=== PATIENT | female | born 1945 | race Caucasian/White ===

== ENCOUNTER 2018-01-13 08:58 | Outpatient (CLI) | payer OTHER, MEDICARE, SELFPAY ==
[2018-01-13 09:39] LABS: Abs Immature Grans 0.01 k/cumm (0.0-0.09); Absolute Basophil Count 0.03 k/cumm (0.0-0.2); Absolute Lymphocyte Count 2.15 k/cumm (1.2-3.4); Absolute Monocyte Count 0.57 k/cumm (0.11-0.7); Absolute Neutrophil Count 3.22 k/cumm (1.2-6.7); Basophils % 0.5; Eosinophils % 3.2; HCT 38.2 % (36.0-46.0); HGB 12.4 g/dL (12.0-15.5); Immature Grans % 0.2; Lymphocytes % 34.8; Mean Corp. HGB Concentration 32.5 g/dL (32.0-36.0); Mean Corpuscular Hemoglobin 30.5 pg (27.0-33.0); Mean Corpuscular Volume 93.9 fL (80-95); Mean Platelet Volume 9.3 fL (8.0-11.0); Monocytes % 9.2; Neutrophils % 52.1; Platelet Count 215 x1000/uL (130-400); RBC 4.07 m/cumm (4.00-5.20); RBC Distribution Width 12.5 % (11.7-14.6); White Blood Cell Count 6.18 k/cumm (4.4-10.8)
[2018-01-13 09:54] LABS: ALT 31 U/L (12-78); AST 22 U/L (15-37); Albumin 3.5 g/dL (3.4-5.0); Alkaline Phosphatase 78 U/L (46-116); Anion Gap 7.2 mmol/L (3-11); BUN 23 mg/dL (7-18); Bilirubin, Total 0.4 mg/dL (0.2-1.0); CO2 28.8 mmol/L (21.0-32.0); CREATININE 1.34 mg/dL (0.55-1.02); Calcium 8.8 mg/dL (8.5-10.1); Chloride 102 mmol/L (98-107); Estimated GFR 38.99 (mL/min/1.73m2); Glucose 185 mg/dL (70-100); Potassium 4.5 mmol/L (3.5-5.1); Sodium 138 mmol/L (136-145); Total Protein 7.3 g/dL (6.4-8.2)
== END 2018-01-13 09:18 ==
PROVIDERS: PCP Family Medicine; Referring Provider Nurse Practitioner Adult Health; Visit Provider Internal Medicine
DX: E11.9 Type 2 diabetes mellitus without complications (principal); Z85.3 Personal history of malignant neoplasm of breast
CPT/HCPCS: 36415; 80053; 83036; 85025

== ENCOUNTER → 2018-02-24 10:49 | Outpatient (BNVA) | payer OTHER, MEDICARE, SELFPAY | PROVIDERS: PCP Family Medicine; Referring Provider Family Medicine; Visit Provider Student in an Organized Health Care Education/Training Program | DX: M65.4 Radial styloid tenosynovitis [de Quervain] (principal); E11.9 Type 2 diabetes mellitus without complications; I10 Essential (primary) hypertension | CPT/HCPCS: 99213 ==

== ENCOUNTER 2018-03-31 08:41 | Outpatient (CLI) | payer OTHER, MEDICARE, SELFPAY ==
[2018-03-31 09:40] LABS: Hemoglobin A1C 7.8 % (4.5-6.2)
[2018-03-31 11:36] LABS: Anion Gap 13.3 mmol/L (3-11); BUN 28 mg/dL (7-18); CO2 27.7 mmol/L (21.0-32.0); CREATININE 1.41 mg/dL (0.55-1.02); Calcium 10.2 mg/dL (8.5-10.1); Chloride 99 mmol/L (98-107); Cholesterol 138 mg/dL (50-200); Estimated GFR 36.77 (mL/min/1.73m2); Glucose 109 mg/dL (70-100); HDL Cholesterol 49 mg/dL (40-60); LDL CHOLESTEROL 70 mg/dL (<100); Potassium 4.2 mmol/L (3.5-5.1); Sodium 140 mmol/L (136-145); Triglyceride 122 mg/dL (30-150)
[2018-03-31 12:03] LABS: COMMENT (LAB VIEW ONLY) 167.99 mg/dL; Microalb ug/mg Crea 5.4 ug/mg Cr
== END 2018-03-31 09:01 ==
PROVIDERS: Physician Assistant; PCP Family Medicine; Visit Provider Student in an Organized Health Care Education/Training Program
DX: E11.65 Type 2 diabetes mellitus with hyperglycemia (principal); I10 Essential (primary) hypertension; E78.5 Hyperlipidemia, unspecified
CPT/HCPCS: 36415; 80048; 80061; 83721; 82043; 82570; 83036

== ENCOUNTER 2018-04-03 08:59 | Day surgery (SDC) | payer OTHER, MEDICARE, SELFPAY ==
[2018-04-03 09:35] VITALS: BP 148/62; PULSE 77; RESP 16; TEMP 36.6; O2SAT 97
[2018-04-03] MEDS: Lactated Ringers 1,000 ML 80 ML IV (10:10)
[2018-04-03] MEDS: Lidocaine 1% Pres-Free 5 ML VIAL (10:30)
--- NOTE | 2018-04-03 10:56 | W.PM.DSUDISC ---
Documented by User: FRIDA Sands 04/03/18 11:03 Discharge Plan Disposition Patient Disposition: HOME Condition: Good Discharge Details Reason For Visit: DEQUERVAIN'S TENDONITIS (L) WRIST Attending Provider: Paul Manzano Primary Care Provider: Geetha Lee Home Meds and New Rx's Prescriptions: New hydrocodone-acetaminophen 5-325 mg tablet 1 tab PO Q6H PRN (Reason: pain) Qty: 6 RF: 0 acetaminophen 500 mg tablet 500 mg PO Q6H PRN (Reason: pain) Qty: 60 RF: 0 ibuprofen 600 mg tablet 600 mg PO TID PRN (Reason: pain) Qty: 60 RF: 0 Continue aspirin [Jacek Chewable Aspirin] 81 mg tablet,chewable 81 mg PO DAILY Qty: 1 RF: 0 arcnbhbuus-myied-niw-boyd-115HC 375-150-125 mg tablet 1 tab PO HS RF: 0 losartan-hydrochlorothiazide 100-25 mg tablet 1 tab PO HS RF: 0 metformin [Glucophage XR] 750 mg tablet extended release 24 hr 1,500 mg PO HS RF: 0 multivitamin tablet 1 tab PO DAILY RF: 0 triamcinolone acetonide 0.1 % cream 1 applic TP BID PRNRF: 0 semaglutide [Ozempic] 0.25 mg or 0.5 mg(2 mg/1.5 mL) pen injector 0.5 mg SC QWEEK MDD 0.25-0.5 weekly Qty: 1.5 RF: 2 pen needle, diabetic [NovoFine Plus] 32 gauge x 1/6 needle .ROUTE .MEDSUPPLY Qty: 100 RF: 0 insulin glargine [Lantus Solostar U-100 Insulin] 100 unit/mL (3 mL) insulin pen 9 unit SC HS MDD 10-30 units per day RF: 0 atorvastatin 40 mg tablet 40 mg PO HS RF: 0 anastrozole 1 mg tablet 1 mg PO HS RF: 0 calcium carbonate-vitamin D3 200 (500)-400 mg-unit capsule 1 cap PO HS RF: 0 Discontinued ibuprofen [Advil Liqui-Gel] 200 mg capsule 400 mg PO PRN PRNRF: 0 acetaminophen 500 mg tablet 1,000 mg PO HS RF: 0 Discharge Orders Discharge Orders: Discharge Order (Routine); Ordered 04/03/18 Ordered By: Manav Duffy DS: Diagnosis Discharge Diagnosis (1) De Quervain's tenosynovitis, left: Status: Chronic
--- NOTE | 2018-04-03 17:44 | ROE_ITS ---
Date of service: 04/03/18 Time of Service: 12:42 Operative Note DATE OF PROCEDURE: 04/03/18 PRE-OP DIAGNOSIS: Left Dequervain's Tenosynovitis POST-OP DIAGNOSIS: same PROCEDURE: Left First Extensor Compartment Release SURGEON: Paul Manzano ANESTHESIA: MAC ESTIMATED BLOOD LOSS: 0 PATHOLOGY: none sent TOURNIQUET TIME: 12 COMPLICATIONS: None Patient was transported to: same day Patient's condition: stable Indications: Yaa is a 72-year-old female who has had symptoms of Dequervein's tenosynovitis. Nonoperative treatment options had been trialed. Given their failure, I offered operative intervention. I reviewed the technical details of a first extensor compartment release. I reviewed the risk of the procedure to include bleeding, infection, pain, stiffness, tendon instability, damage to the superficial radial nerve, and complete release. Despite these risks, the patient elected to proceed. Findings: There was a tightened first extensor compartment. Procedure Description: Yaa was greeted in the preoperative holding area. Name and surgical site were confirmed. The history and physical was completed. The consent was reviewed the patient and signed. Yaa was taken back to the operating room. The patient was placed and monitored anesthesia care. The left was then prepped with ChloraPrep and draped in a standard fashion after a nonsterile tourniquet was placed high up onto the arm. Prophylactic antibiotics in the form of cefazolin were administered. A timeout was performed for safe surgery. The surgical site was drawn on the skin. The planned surgical field was anesthetized with 0.25% bupivacaine with epinephrine. The limb was exsanguinated and the tourniquet was inflated where it stayed for 12 minutes. A 2 cm incision was made longitudinally over the radial styloid. The skin was incised only. The deep tissue and subcutaneous fat was dissected with a tenotomy scissors trying to protect branchhes of the superficial radial nerve. Any branches that were identified were retracted out of the way. The first compartment extensor tendons were then identified. The distal aspect of the first compartment was noted and were released. This release was performed more on the dorsal side to prevent tendon subluxation. The entirety of the first extensor compartment was then released. The slips of the abductor pollicis longus tendon were inspected. They removed to confirm the appropriate motion of the thumb. The extensor pollicis brevis tendon was then identified. No true sub-compartment was identified. Traction on the tendon was also used to confirm appropriate extension of the thumb confirming the release of the appropriate tendon. The dorsal radial surface of the radius was once again inspected to make sure there is no other sub-compartments or other restrictions to tendon motion. The wound was then thoroughly irrigated. The deep tissue was closed with a 3-0 Vicryl. The skin was closed with a running subjective 4- 0 Monocryl. Skin glue was applied. The tourniquet is released without significant bleeding. The hand was dressed with 4 x 4's, web roll, thumb spica splint. All counts were correct. Patient was transferred back to same day surgery area in stable condition.
== END 2018-04-03 11:55 | disposition home or self-care (01) ==
PROVIDERS: PCP Family Medicine; Visit Provider Student in an Organized Health Care Education/Training Program
PROC: (CPT 25000; principal; 2018-04-03 10:00)
DX: M65.4 Radial styloid tenosynovitis [de Quervain] (principal); E11.9 Type 2 diabetes mellitus without complications; Z79.4 Long term (current) use of insulin; I10 Essential (primary) hypertension; K21.9 Gastro-esophageal reflux disease without esophagitis
CPT/HCPCS: 25000; J0690; J1885; J2405

== ENCOUNTER 2018-08-15 08:56 | Outpatient (CLI) | payer OTHER, MEDICARE, SELFPAY ==
[2018-08-15 09:51] LABS: Hemoglobin A1C 6.7 % (4.5-6.2)
[2018-08-15 10:03] LABS: Anion Gap 7.8 mmol/L (3-11); BUN 19 mg/dL (7-18); CO2 31.2 mmol/L (21.0-32.0); CREATININE 1.33 mg/dL (0.55-1.02); Calcium 9.7 mg/dL (8.5-10.1); Chloride 101 mmol/L (98-107); Estimated GFR 39.33 (mL/min/1.73m2); Glucose 115 mg/dL (70-100); Potassium 4.2 mmol/L (3.5-5.1); Sodium 140 mmol/L (136-145)
== END 2018-08-15 09:16 ==
PROVIDERS: PCP Family Medicine; Visit Provider Family Medicine
DX: E11.9 Type 2 diabetes mellitus without complications (principal)
CPT/HCPCS: 36415; 80048; 83036

== ENCOUNTER 2018-12-22 01:48 | Outpatient (CLI) | payer MEDICARE, OTHER, SELFPAY ==
[2018-12-22 09:28] LABS: Abs Immature Grans 0.02 k/cumm (0.0-0.09); Absolute Basophil Count 0.03 k/cumm (0.0-0.2); Absolute Eosinophil Count 0.19 k/cumm (0.0-0.7); Absolute Lymphocyte Count 2.22 k/cumm (1.2-3.4); Absolute Monocyte Count 0.66 k/cumm (0.11-0.7); Absolute Neutrophil Count 4.47 k/cumm (1.2-6.7); Basophils % 0.4; Eosinophils % 2.5; HCT 41.4 % (36.0-46.0); HGB 13.6 g/dL (12.0-15.5); Immature Grans % 0.3; Lymphocytes % 29.2; Mean Corp. HGB Concentration 32.9 g/dL (32.0-36.0); Mean Corpuscular Hemoglobin 30.5 pg (27.0-33.0); Mean Corpuscular Volume 92.8 fL (80-95); Mean Platelet Volume 8.8 fL (8.0-11.0); Monocytes % 8.7; Neutrophils % 58.9; Platelet Count 214 x1000/uL (130-400); RBC 4.46 m/cumm (4.00-5.20); RBC Distribution Width 12.7 % (11.7-14.6); White Blood Cell Count 7.59 k/cumm (4.4-10.8)
[2018-12-22 09:46] LABS: ALT 29 U/L (12-78); AST 22 U/L (15-37); Albumin 3.7 g/dL (3.4-5.0); Alkaline Phosphatase 65 U/L (46-116); Anion Gap 9.3 mmol/L (3-11); BUN 22 mg/dL (7-18); Bilirubin, Total 0.4 mg/dL (0.2-1.0); CO2 27.7 mmol/L (21.0-32.0); Calcium 9.5 mg/dL (8.5-10.1); Chloride 103 mmol/L (98-107); Estimated GFR 40.26 (mL/min/1.73m2); Glucose 124 mg/dL (70-100); Sodium 140 mmol/L (136-145); Total Protein 7.8 g/dL (6.4-8.2)
[2018-12-23 10:40] LABS: Hemoglobin A1C 6.9 % (4.5-6.2)
== END 2018-12-22 02:08 ==
PROVIDERS: Nurse Practitioner Adult Health; PCP Family Medicine; Visit Provider Family Medicine
DX: E11.9 Type 2 diabetes mellitus without complications (principal); C50.911 Malignant neoplasm of unspecified site of right female breast; Z85.3 Personal history of malignant neoplasm of breast
CPT/HCPCS: 36415; 80053; 83036; 85025

== ENCOUNTER 2019-02-12 00:57 | Outpatient (CLI) | payer MEDICARE, OTHER, SELFPAY ==
--- NOTE | 2019-02-12 15:50 | DI.DEXA_ITS ---
EXAM: XR DEXA BONE DENSITY W/WO JEMIMA INDICATION: OSTEOPOROSIS WITHOUT FX,M81.8, BREAST CA, C50.911, PERSONAL H/O BREAST CA.z85.3,HIGH RIS K MEDICATION USE, Z79.899 TECHNIQUE: 2D digital imaging was performed. FINDINGS: DEXA scan was performed according to the usual protocol. Findings for left hip scanning are T-score 0.3 with left femoral neck T-score -0.1. Prior examination of 2016 showed left hip T-score 1 4. Lumbar spine scanning shows T-score 2.0, prior examination of 2016 showed lumbar T-score 2.2. Left forearm scanning shows T-score 0.9, prior examination of 2016 shows forearm T-score 0.5. IMPRESSION: Findings consistent with normal bone density according to the WHO criteria. Lateral vertebral scanogr am shows no evidence of a vertebral compression fracture.
== END 2019-02-12 01:17 ==
PROVIDERS: PCP Family Medicine; Visit Provider Nurse Practitioner Adult Health
DX: M81.8 Other osteoporosis without current pathological fracture (principal); Z85.3 Personal history of malignant neoplasm of breast; Z79.899 Other long term (current) drug therapy
CPT/HCPCS: 77080

== ENCOUNTER 2019-04-21 02:59 | Outpatient (CLI) | payer MEDICARE, OTHER, SELFPAY ==
[2019-04-21 08:00] LABS: COMMENT (LAB VIEW ONLY) 230.63 mg/dL
[2019-04-21 08:01] LABS: Calcium 9.6 mg/dL (8.5-10.1)
[2019-04-21 08:02] LABS: ALT 26 U/L (14-59); AST 22 U/L (15-37); Albumin 3.9 g/dL (3.4-5.0); Alkaline Phosphatase 53 U/L (46-116); Anion Gap 9.5 mmol/L (3-11); BUN 27 mg/dL (7-18); Bilirubin, Total 0.5 mg/dL (0.2-1.0); CO2 29.5 mmol/L (21.0-32.0); CREATININE 1.31 mg/dL (0.55-1.02); Chloride 103 mmol/L (98-107); Estimated GFR 39.91 (mL/min/1.73m2); Glucose 110 mg/dL (74-106); Potassium 3.9 mmol/L (3.5-5.1); Sodium 142 mmol/L (136-145)
[2019-04-21 08:18] LABS: Hemoglobin A1C 6.9 % (4.5-6.2)
== END 2019-04-21 03:19 ==
PROVIDERS: PCP Family Medicine; Visit Provider Family Medicine
DX: E11.9 Type 2 diabetes mellitus without complications (principal); I10 Essential (primary) hypertension
CPT/HCPCS: 36415; 80053; 82043; 82570; 83036

== ENCOUNTER 2019-12-16 03:16 | Outpatient (CLI) | payer MEDICARE, OTHER, SELFPAY ==
[2019-12-16 08:33] LABS: Hemoglobin A1C 7.4 % (3.8-5.6)
[2019-12-16 09:18] LABS: ALT 26 U/L (14-59); AST 21 U/L (15-37); Albumin 3.8 g/dL (3.4-5.0); Alkaline Phosphatase 49 U/L (46-116); Anion Gap 7.7 mmol/L (3-11); BUN 25 mg/dL (7-18); Bilirubin, Total 0.5 mg/dL (0.2-1.0); CO2 29.3 mmol/L (21.0-32.0); CREATININE 1.31 mg/dL (0.55-1.02); Calcium 9.6 mg/dL (8.5-10.1); Chloride 101 mmol/L (98-107); Glucose 134 mg/dL (74-106); Potassium 4.4 mmol/L (3.5-5.1); Sodium 138 mmol/L (136-145); Total Protein 6.9 g/dL (6.4-8.2)
== END 2019-12-16 03:36 ==
PROVIDERS: PCP Family Medicine; Visit Provider Family Medicine
DX: E11.9 Type 2 diabetes mellitus without complications (principal)
CPT/HCPCS: 36415; 80053; 83036

== ENCOUNTER 2020-02-18 02:42 | Outpatient (CLI) | payer MEDICARE, OTHER, SELFPAY ==
[2020-02-18 08:15] LABS: Abs Immature Grans 0.01 10^3/uL (0.0-0.06); Absolute Basophil Count 0.03 10^3/uL (0.0-0.2); Absolute Eosinophil Count 0.21 10^3/uL (0.0-0.7); Absolute Lymphocyte Count 2.39 10^3/uL (1.2-3.4); Absolute Monocyte Count 0.69 10^3/uL (0.1-0.8); Absolute Neutrophil Count 4.12 10^3/uL (1.2-6.7); Basophils % 0.4; Eosinophils % 2.8; HGB 12.9 g/dL (11.2-15.7); Immature Grans % 0.1; Lymphocytes % 32.1; MCH 30.4 pg (27.0-33.0); MCHC 32.3 % (32.0-36.0); MCV 94.1 fL (80-95); MPV 8.8 fL (8.0-11.0); Monocytes % 9.3; Neutrophils % 55.3; Nucleated RBC 0 %; Platelet Count 235 10^3/uL (130-400); RBC 4.25 10^6/uL (3.93-5.22); RDW 12.4 % (11.7-14.6); RDW-SD 42.6 fL; WBC 7.45 10^3/uL (4.4-10.8)
[2020-02-18 09:04] LABS: ALT 24 U/L (14-59); AST 17 U/L (15-37); Albumin 3.8 g/dL (3.4-5.0); Alkaline Phosphatase 57 U/L (46-116); Anion Gap 9.1 mmol/L (3-11); BUN 28 mg/dL (7-18); Bilirubin, Total 0.4 mg/dL (0.2-1.0); CO2 28.9 mmol/L (21.0-32.0); CREATININE 1.36 mg/dL (0.55-1.02); Calcium 9.9 mg/dL (8.5-10.1); Chloride 99 mmol/L (98-107); Estimated GFR 38.11 (mL/min/1.73m2); Glucose 137 mg/dL (74-106); Potassium 4.6 mmol/L (3.5-5.1); Sodium 137 mmol/L (136-145); Total Protein 7.3 g/dL (6.4-8.2)
== END 2020-02-18 03:02 ==
PROVIDERS: PCP Family Medicine; Visit Provider Internal Medicine
DX: Z85.3 Personal history of malignant neoplasm of breast (principal); Z79.899 Other long term (current) drug therapy
CPT/HCPCS: 36415; 80053; 85025

== ENCOUNTER 2020-08-11 02:07 | Outpatient (CLI) | payer MEDICARE, OTHER, SELFPAY ==
[2020-08-11 09:11] LABS: COMMENT (LAB VIEW ONLY) 219.58 mg/dL; Microalb ug/mg Crea 4.8 ug/mg Cr
[2020-08-11 09:15] LABS: Hemoglobin A1C 7.8 % (<5.7)
[2020-08-11 10:08] LABS: ALT 37 U/L (14-59); AST 24 U/L (15-37); Albumin 3.7 g/dL (3.4-5.0); Alkaline Phosphatase 56 U/L (46-116); Anion Gap 10.1 mmol/L (3-11); BUN 24 mg/dL (7-18); Bilirubin, Total 0.4 mg/dL (0.2-1.0); CO2 30.9 mmol/L (21.0-32.0); CREATININE 1.4 mg/dL (0.55-1.02); Calcium 10.1 mg/dL (8.5-10.1); Calculated LDL 68 mg/dL (<100); Chloride 101 mmol/L (98-107); Cholesterol 151 mg/dL (<200); Estimated GFR 36.86 (mL/min/1.73m2); Glucose 151 mg/dL (74-106); HDL Cholesterol 51 mg/dL (40-60); Potassium 4.4 mmol/L (3.5-5.1); Sodium 142 mmol/L (136-145); Total Protein 7.1 g/dL (6.4-8.2); Triglyceride 162 mg/dL (<150); Vitamin B12 1202 pg/mL (193-986)
== END 2020-08-11 02:08 | disposition home or self-care (01) ==
LOC: LBO 02:08
PROVIDERS: PCP Family Medicine; Visit Provider Family Medicine
DX: E11.9 Type 2 diabetes mellitus without complications (principal); E53.8 Deficiency of other specified B group vitamins
CPT/HCPCS: 36415; 80053; 80061; 82043; 82570; 82607; 83036

== ENCOUNTER 2020-08-17 03:15 | Outpatient (CLI) | payer MEDICARE, OTHER, SELFPAY ==
[2020-08-18 09:12] LABS: HBs Antibody, Quant 4.5 mIU/mL (See Note); Hepatitis B Surface Ab Negative (See Note)
[2020-08-18 10:10] LABS: Hepatitis C Ab w Rflx HCV PCR Negative (Negative)
== END 2020-08-17 03:16 | disposition home or self-care (01) ==
LOC: LBO 03:15
PROVIDERS: PCP Family Medicine; Visit Provider Family Medicine
DX: Z11.59 Encounter for screening for other viral diseases (principal)
CPT/HCPCS: 36415; 86706; 86803

== ENCOUNTER 2020-08-31 03:08 | Outpatient (CLI) | payer MEDICARE, OTHER, SELFPAY ==
--- NOTE | 2020-08-31 07:26 | DI.US_ITS ---
APPROVED REPORT EXAM: Comprehensive 2D, Doppler, and color-flow Echocardiogram Patient Location: Out-Patient [place] Header: Sabrina Gardner RDCS (AE) Indications: Murmur Other Information Study Quality: Adequate Conclusion Left Ventricle : The left ventricle is normal size. The left ventricular systolic function is normal. The left ventricular ejection fraction is within the normal range. There is normal left ventricular wall thickness. There is normal LV segmental wall motion. The left ventricular diastolic function is abnormal. LVEF is 55%. Right Ventricle : The right ventricle is normal size. The right ventricular systolic function is norm al. The RVSP is 19.9mmHg. Atria : The left atrium size is normal. The right atrium size is normal. Aortic Valve : Aortic valve is calcified. Number of aortic valve leaflets could not be assessed. Mild aortic regurgitation. Mild to moderate aortic stenosis. Peak aortic valve gradient is 31.0mmHg. Hig hest mean aortic valve gradient is 20.2mmHg. Calculated JENNY by the continuity equation is cm2. Great Vessels : The aortic root is normal in size. The ascending aorta is normal in size. Aortic arch is normal in caliber. IVC is normal in size and collapses >50% with inspiration. Please see remainder of study for further details. Wall motion Left Ventricle The left ventricle is normal size. The left ventricular systolic function is normal. The left ventric ular ejection fraction is within the normal range. There is normal left ventricular wall thickness. T here is normal LV segmental wall motion. The left ventricular diastolic function is abnormal. There i s no ventricular septal defect visualized. LVEF is 55%. Right Ventricle The right ventricle is normal size. The right ventricular systolic function is normal. The RVSP is 19 .9mmHg. Atria The left atrium size is normal. The right atrium size is normal. The interatrial septum is intact wit h no evidence for an atrial septal defect. Aortic Valve Aortic valve is calcified. Number of aortic valve leaflets could not be assessed. Mild to moderate ao rtic stenosis. Peak aortic valve gradient is 31.0mmHg. Highest mean aortic valve gradient is 20.2mmHg . Calculated JENNY by the continuity equation is cm2. Mild aortic regurgitation. Mitral Valve Moderate mitral annular calcification. No evidence of mitral valve stenosis. Trace mitral regurgitati on. Tricuspid Valve The tricuspid valve is normal in structure. There is no tricuspid valve stenosis. Trace tricuspid reg urgitation. Pulmonic Valve The pulmonary valve is normal in structure. There is no pulmonic valvular stenosis. There is no pulmo spenser valvular regurgitation. Great Vessels The aortic root is normal in size. The ascending aorta is normal in size. Aortic arch is normal in ca liber. IVC is normal in size and collapses >50% with inspiration. Pericardium There is no pericardial effusion. Prominent anterior epicardial fat pad is present. 2D Dimensions IVSD d PLAX 1.02 cm F: 0.6-1.0 LV Vol A2C d MOD 82.4 mL LVPW d PLAX 1.04 cm F: 0.6 - 1.0 LV Vol A4C d MOD 78.6 mL LVID d PLAX 4.24 cm F: 3.8 - 5.2 LA vol/ BSA A2C s A-L 19.7 mL/m2 LVDs 2.90 cm F: 2.2 - 3.5 LA vol/ BSA A4C s A-L 26.8 mL/m2 Ao Root d 2.70 cm F: 2.7 - 3.3 LA Vol/ BSA Biplane s A-L 24.8 mL/m2 RA Area A4C 10.24 cm2 LA Area A4C s MOD 17.92 cm2 RA Vol/ BSA A4C s A-L 11.6 mL/m2 LA Area A2C s MOD 14.22 cm2 Ao Asc Diam d 3.17 cm F: 2.3 - 3.1 LV EF A4C MOD 56.6 % LV EF Teichholz 58.6 % LV EF A2C MOD 55.9 % LVEF (Randle's) 55.74 % F: 54 - 74 LV EF Biplane MOD 55.7 % LV Volume 64.17 mL F: 46 - 106 SV 46.37 mL LV Volume Index 34.87 mL/m2 F: 29 - 61 SV Index 25.16 mL/m2 LV Vol Biplane MOD 83.2 mL FS 30.65 % M-Mode TAPSE 2.14 cm (M/F) >1.7 LV Diastology MV E' medial 0.065 (>0.07 m/s) E/A Ratio 0.7 LV E/e MED 14.95 (<14) MV E Vmax 0.97 (0.4-1.3 m/s) MV E' lateral 0.067 (>0.1 m/s) MV A Vmax 1.35 (0.4-1.3 m/s) LV E/e LAT 14.40 (<14) MV E/A Ratio 0.72 MV E/E' medial 14.99 MV E/E' lateral 14.44 Aortic Valve LVOT Area 3.10 cm2 AoV Area Vmax 1.10 cm2 LVOT Vmax 0.99 m/s AoV Area/ BSA (Vmax) 0.60 cm2/m2 LVOT Mean Bashir. 0.67 m/s JENNY Mean Bashir. 0.96 cm2 LVOT Peak Grad 3.9 mmHg JENNY Mean Bashir. Index 0.52 cm2/m2 LVOT Mean Grad 2.1 mmHg AR DT 1679 msec LVOT VTI 0.247 m AR PHT 487 msec LVOT Diam s 1.95 cm AoV Vmax 2.78 m/s Velocity Ratio 0.35 AoV Mean Bashir. 2.17 m/s AoV Peak Grad 31.0 mmHg LVOT SV 76.61 mL AoV Mean Grad 20.2 mmHg AoV VTI 0.669 m AoV Area VTI 1.15 cm2 AoV Area/ BSA (VTI) 0.62 cm/m2 Mitral Valve MV DT 240 (160-240 msec) MV PHT 70 msec MV Area PHT 3.16 cm2 MV VTI 0.338 m MV Area VTI 2.26 (4.0-6.0 cm2) Pulmonary Valve PV Vmax 0.98 (0.5-1.5 m/s) RVOT Peak Gr. 2.86 mmHg PV Peak Grad 3.8 mmHg RVOT Mean Gr. 1.60 mmHg PV Mean Grad 1.8 mmHg RVOT VTI 0.188 m PV VTI 0.171 m RVOT Vmax 0.85 m/s Tricuspid Valve TR Peak Grad 16.8 mmHg TR Vmax 2.05 m/s RA Pressure 3.00 mmHg RVSP (TR) 19.9 mmHg
== END 2020-08-31 03:28 ==
PROVIDERS: PCP Family Medicine; Visit Provider Family Medicine
DX: R01.1 Cardiac murmur, unspecified (principal); I35.2 Nonrheumatic aortic (valve) stenosis with insufficiency
CPT/HCPCS: 93306

== ENCOUNTER 2021-02-08 02:50 | Outpatient (CLI) | payer MEDICARE, OTHER, SELFPAY ==
[2021-02-08 08:42] LABS: Abs Immature Grans 0.02 10^3/uL (0.0-0.06); Absolute Basophil Count 0.04 10^3/uL (0.0-0.2); Absolute Eosinophil Count 0.18 10^3/uL (0.0-0.7); Absolute Lymphocyte Count 2.62 10^3/uL (1.2-3.4); Absolute Neutrophil Count 3.48 10^3/uL (1.2-6.7); Basophils % 0.6; Eosinophils % 2.6; HCT 38.7 % (36.0-46.0); HGB 12.5 g/dL (11.2-15.7); Immature Grans % 0.3; Lymphocytes % 37.2; MCH 30.8 pg (27.0-33.0); MCHC 32.3 % (32.0-36.0); MCV 95.3 fL (80-95); Monocytes % 9.9; Neutrophils % 49.4; Nucleated RBC 0 %; Platelet Count 231 10^3/uL (130-400); RBC 4.06 10^6/uL (3.93-5.22); RDW 12.4 % (11.7-14.6); RDW-SD 43.8 fL; WBC 7.04 10^3/uL (4.4-10.8)
[2021-02-08 08:52] LABS: Hemoglobin A1C 7.3 % (<5.7)
[2021-02-08 09:45] LABS: ALT 32 U/L (14-59); AST 23 U/L (15-37); Albumin 3.7 g/dL (3.4-5.0); Alkaline Phosphatase 53 U/L (46-116); Anion Gap 4.4 mmol/L (3-11); BUN 26 mg/dL (7-18); Bilirubin, Total 0.4 mg/dL (0.2-1.0); CO2 32.6 mmol/L (21.0-32.0); CREATININE 1.5 mg/dL (0.55-1.02); Chloride 103 mmol/L (98-107); Estimated GFR 33.94 (mL/min/1.73m2); Glucose 133 mg/dL (74-106); Potassium 4.4 mmol/L (3.5-5.1); Sodium 140 mmol/L (136-145); Total Protein 7.2 g/dL (6.4-8.2)
== END 2021-02-08 02:51 | disposition home or self-care (01) ==
LOC: LBO 02:50
PROVIDERS: PCP Family Medicine; Visit Provider Family Medicine
DX: Z85.3 Personal history of malignant neoplasm of breast
CPT/HCPCS: 36415; 80048; 80053; 83036; 85025

== ENCOUNTER 2021-02-16 02:06 | Outpatient (CLI) | payer MEDICARE, OTHER, SELFPAY ==
--- NOTE | 2021-02-16 08:04 | DI.RAD_ITS ---
Exam(s) XR SHOULDER RT COMPLETE 2+V EXAM: XR SHOULDER RT COMPLETE 2+V CLINICAL HISTORY: R shoulder pain/no trauma/hx cancer,M25.511 TECHNIQUE: COMPARISON: No exams were available for comparison FINDINGS: Five views were obtained. The cartilaginous joint space of the glenohumeral joint appears fairly wel l maintained. Mild marginal osteophyte formation is noted at the glenohumeral joint and acromioclavi cular joint. No other bony or soft tissue abnormality seen. Alignment appears within normal limits. IMPRESSION: Mild degenerative changes of glenohumeral and acromioclavicular joints. RADIATION DOSE DELIVERED: Total DLP
== END 2021-02-16 02:26 ==
PROVIDERS: PCP Family Medicine; Visit Provider Family Medicine
DX: M25.511 Pain in right shoulder (principal); M19.011 Primary osteoarthritis, right shoulder; Z85.3 Personal history of malignant neoplasm of breast
CPT/HCPCS: 73030

== ENCOUNTER 2021-03-20 08:55 | Outpatient (CLI) | payer MEDICARE, OTHER, SELFPAY ==
[2021-03-20 12:27] LABS: Absolute Basophil Count 0.02 10^3/uL (0.0-0.2); Absolute Eosinophil Count 0.42 10^3/uL (0.0-0.7); Absolute Lymphocyte Count 1.34 10^3/uL (1.2-3.4); Absolute Monocyte Count 0.35 10^3/uL (0.1-0.8); Absolute Neutrophil Count 2.12 10^3/uL (1.2-6.7); Basophils % 0.5; Eosinophils % 9.9; HCT 41.7 % (36.0-46.0); HGB 13.4 g/dL (11.2-15.7); Lymphocytes % 31.5; MCH 30.3 pg (27.0-33.0); MCHC 32.1 % (32.0-36.0); MCV 94.3 fL (80-95); MPV 9.7 fL (8.0-11.0); Monocytes % 8.2; Neutrophils % 49.9; Nucleated RBC 0 %; Platelet Count 161 10^3/uL (130-400); RBC 4.42 10^6/uL (3.93-5.22); RDW 12.7 % (11.7-14.6); RDW-SD 44.4 fL; WBC 4.25 10^3/uL (4.4-10.8)
[2021-03-20 14:36] LABS: ALT 143 U/L (14-59); AST 97 U/L (15-37); Albumin 3.7 g/dL (3.4-5.0); Alkaline Phosphatase 91 U/L (46-116); Anion Gap 8.8 mmol/L (3-11); BUN 23 mg/dL (7-18); Bilirubin, Total 0.4 mg/dL (0.2-1.0); CO2 30.2 mmol/L (21.0-32.0); CREATININE 1.4 mg/dL (0.55-1.02); Calcium 9.8 mg/dL (8.5-10.1); Chloride 102 mmol/L (98-107); Estimated GFR 36.76 (mL/min/1.73m2); Glucose 140 mg/dL (74-106); Potassium 4.1 mmol/L (3.5-5.1); Sodium 141 mmol/L (136-145); TSH 3.02 uIU/mL (0.36-3.74); Total Protein 7.5 g/dL (6.4-8.2)
== END 2021-03-20 08:56 | disposition home or self-care (01) ==
LOC: LOS 08:55
PROVIDERS: PCP Family Medicine; Visit Provider Family Medicine
DX: R41.0 Disorientation, unspecified (principal)
CPT/HCPCS: 36415; 80053; 84443; 85025

== ENCOUNTER 2021-04-04 01:42 | Outpatient (CLI) | payer MEDICARE, OTHER, SELFPAY ==
--- NOTE | 2021-04-04 06:30 | DI.US_ITS ---
Exam(s) US CAROTID EXAM: US CAROTID CLINICAL HISTORY: carotid bruit/ episode of confusion,r09.89,r41.82. TECHNIQUE: Ultrasound carotids performed using grayscale, color-flow, and spectral Doppler imaging. COMPARISON: No exams were available for comparison FINDINGS: RIGHT CAROTID ARTERY: Plaque: Moderate plaque seen in the carotid bulb and proximal and mid ICA. Velocity elevation: Please see below. LEFT CAROTID ARTERY: Plaque: Mild plaque seen in the carotid bulb. Velocity elevation: None. VERTEBRAL ARTERIES: Antegrade flow. Measurements: R Bulb: 50.1cm/s PS / 15.4cm/s ED R CCA: 72.6cm/s PS / 17.4cm/s ED R ECA: 100cm/s PS / 15.7cm/s ED R ICA Prox: 159.1cm/s PS /52.1cm/s ED R ICA Mid: 152.7cm/s PS / 53.1cm/s ED R ICA Distal: 86.2cm/s PS /27.3cm/s ED R Vert: 50.8cm/s PS / 16.1cm/s ED R SVR: 2.19 R DVR: 2.99 L Bulb: 55.3cm/s PS /19.3cm/s ED L CCA: 71.3cm/s PS / 21.2cm/s ED L ECA: 75.2cm/s PS /10.9cm/s ED L ICA Prox:70.7cm/s PS / 21.9cm/s ED L ICA Mid: 107.3cm/sPS / 36.8cm/s ED L ICA Distal: 69.4cm/s PS / 25.1cm/s ED L Vert: 55.3cm/s PS / 15.4cm/s ED L SVR: 1.5 L DVR: 1.74 IMPRESSION: 1. 50-69 percent stenosis seen in the proximal right internal carotid artery. 2. No hemodynamically significant stenosis seen on the left. Criteria for Carotid Stenosis: Normal: ICA PSV <125 cm/s no plaque or intimal thickening is visible. <50% stenosis: ICA PSV <125 cm/s and plaque or intimal thickening is visible. 50-69% stenosis: ICA PSV is 125-250 cm/s and plaque is visible. >70% stenosis to near occlusion: ICA PSV >250 cm/s with visible plaque and luminal narrowing. DATA REPOSITORY:
--- NOTE | 2021-04-04 14:10 | DI.MRI_ITS ---
Exam(s) MR BRAIN WO EXAM: MR BRAIN WO CLINICAL HISTORY: acute confusion/balance issues/memory loss,r41.82 TECHNIQUE: Multiplanar multisequence MRI of the brain was performed. COMPARISON: No exams were available for comparison FINDINGS: VENTRICLES AND EXTRA AXIAL SPACES: Normal in size and morphology for the patient's age. The ventricle s and sulci are consistent in size. MIDLINE SHIFT: None. CEREBRAL PARENCHYMA: No focus of restricted diffusion to suggest acute infarct. No space-occupying le yokasta identified. There are multiple foci of hyperintense signal in the white matter on the T2 and FLA IR images. These most likely represent chronic microvascular ischemic change. HEMORRHAGE: None. BRAINSTEM/CEREBELLUM: Normal. CALVARIUM: Normal. VISUALIZED PARANASAL SINUSES/MASTOIDS:Clear. WAINWRIGHT OF [place]: Normal flow void. PITUITARY GLAND: Unremarkable. OTHER FINDINGS: None. IMPRESSION: Age-appropriate cerebral atrophy and chronic microvascular ischemic disease. DATA REPOSITORY:
== END 2021-04-04 02:02 ==
PROVIDERS: PCP Family Medicine; Visit Provider Family Medicine
DX: R41.82 Altered mental status, unspecified (principal); R09.89 Other specified symptoms and signs involving the circulatory and respiratory systems
CPT/HCPCS: 70551; 93880

== ENCOUNTER 2021-08-11 02:53 | Outpatient (CLI) | payer MEDICARE, OTHER, SELFPAY ==
[2021-08-11 12:01] LABS: Hemoglobin A1C 7.5 % (<5.7)
[2021-08-11 12:42] LABS: ALT 29 U/L (14-59); AST 20 U/L (15-37); Albumin 3.9 g/dL (3.4-5.0); Alkaline Phosphatase 61 U/L (46-116); Anion Gap 7.9 mmol/L (3-11); BUN 22 mg/dL (7-18); Bilirubin, Total 0.4 mg/dL (0.2-1.0); CO2 32.1 mmol/L (21.0-32.0); CREATININE 1.4 mg/dL (0.55-1.02); Calcium 9.8 mg/dL (8.5-10.1); Calculated LDL 57 mg/dL (<100); Chloride 100 mmol/L (98-107); Cholesterol 146 mg/dL (<200); Estimated GFR 36.76 (mL/min/1.73m2); Glucose 198 mg/dL (74-106); HDL Cholesterol 50 mg/dL (40-60); Sodium 140 mmol/L (136-145); Total Protein 7.2 g/dL (6.4-8.2); Triglyceride 196 mg/dL (<150)
[2021-08-11 13:12] LABS: COMMENT (LAB VIEW ONLY) 230.23 mg/dL; Microalb ug/mg Crea 11.2 ug/mg Cr
== END 2021-08-11 02:54 | disposition home or self-care (01) ==
LOC: LBO 02:53
PROVIDERS: PCP Family Medicine; Visit Provider Family Medicine
DX: I10 Essential (primary) hypertension (principal); E11.9 Type 2 diabetes mellitus without complications
CPT/HCPCS: 36415; 80053; 80061; 82043; 82570; 83036

== ENCOUNTER 2021-11-24 08:58 | Outpatient (CLI) | payer MEDICARE, OTHER, SELFPAY ==
--- NOTE | 2021-11-24 08:45 | RT.EKG_ITS ---
APPROVED REPORT Exam: Resting ECG Reason for Exam: Patient Location: O HR:74 bpm ECG Measurements Heart Rate 74 AXIS ID 147 P 37 QRSd 90 QRS -19 QT 373 T 51 QTc 414 Conclusion Sinus rhythm...normal P axis, V-rate 50- 99 Normal Electrocardiogram
== END 2021-11-24 08:59 | disposition home or self-care (01) ==
LOC: DI.CARD 08:59
PROVIDERS: PCP Family Medicine; Visit Provider Internal Medicine Cardiovascular Disease
DX: I35.0 Nonrheumatic aortic (valve) stenosis (principal)
CPT/HCPCS: 93010

== ENCOUNTER → 2021-11-24 11:06 | Outpatient (BNVA) | payer MEDICARE, OTHER, SELFPAY | PROVIDERS: PCP Family Medicine; Referring Provider Family Medicine; Visit Provider Internal Medicine Cardiovascular Disease | DX: I35.0 Nonrheumatic aortic (valve) stenosis (principal); I10 Essential (primary) hypertension; I65.29 Occlusion and stenosis of unspecified carotid artery; E78.5 Hyperlipidemia, unspecified | CPT/HCPCS: 93005; 99203 ==

== ENCOUNTER 2022-02-13 02:51 | Outpatient (CLI) | payer MEDICARE, OTHER, SELFPAY ==
[2022-02-13 11:35] LABS: Abs Immature Grans 0.01 10^3/uL (0.0-0.06); Absolute Basophil Count 0.04 10^3/uL (0.0-0.2); Absolute Eosinophil Count 0.13 10^3/uL (0.0-0.7); Absolute Lymphocyte Count 2.27 10^3/uL (1.2-3.4); Absolute Neutrophil Count 4.01 10^3/uL (1.2-6.7); Basophils % 0.6; Eosinophils % 1.8; HCT 37.3 % (36.0-46.0); HGB 12.5 g/dL (11.2-15.7); Immature Grans % 0.1; Lymphocytes % 31.7; MCH 31.4 pg (27.0-33.0); MCHC 33.5 % (32.0-36.0); MCV 94 fL (80-95); MPV 8.8 fL (8.0-11.0); Monocytes % 9.8; Platelet Count 222 10^3/uL (130-400); RBC 3.98 10^6/uL (3.93-5.22); RDW 12.6 % (11.7-14.6); RDW-SD 43.3 fL; WBC 7.16 10^3/uL (4.4-10.8)
[2022-02-13 11:49] LABS: Hemoglobin A1C 7.4 % (<5.7)
[2022-02-13 12:01] LABS: PHOSPHORUS 3.9 mg/dL (2.6-4.7)
[2022-02-13 12:03] LABS: COMMENT (LAB VIEW ONLY) 167.47 mg/dL; Microalb ug/mg Crea 7.7 ug/mg Cr
[2022-02-13 12:04] LABS: ALT 31 U/L (14-59); AST 23 U/L (15-37); Albumin 3.8 g/dL (3.4-5.0); Alkaline Phosphatase 47 U/L (46-116); Anion Gap 7.6 mmol/L (3-11); BUN 23 mg/dL (7-18); Bilirubin, Total 0.4 mg/dL (0.2-1.0); CO2 31.4 mmol/L (21.0-32.0); CREATININE 1.3 mg/dL (0.55-1.02); Calcium 10.1 mg/dL (8.5-10.1); Chloride 100 mmol/L (98-107); Estimated GFR 42.88 (mL/min/1.73m2); Glucose 131 mg/dL (74-106); Potassium 4.2 mmol/L (3.5-5.1); Sodium 139 mmol/L (136-145); Total Protein 7.4 g/dL (6.4-8.2)
[2022-02-14 09:40] LABS: Parathyroid Hormone,Intact 18 pg/mL (19-88)
[2022-02-15 05:54] LABS: Vitamin D 25 Total 39.5 ng/mL (30-100)
[2022-02-16 19:47] LABS: Lab Add On Test DONE
[2022-02-16 20:03] LABS: Magnesium 1.5 mg/dL (1.8-2.4)
== END 2022-02-13 02:52 | disposition home or self-care (01) ==
PROVIDERS: PCP Family Medicine; Visit Provider Internal Medicine
DX: N18.32 Chronic kidney disease, stage 3b (principal); E11.22 Type 2 diabetes mellitus with diabetic chronic kidney disease; Z79.4 Long term (current) use of insulin
CPT/HCPCS: 36415; 80053; 82306; 85027; 82043; 82570; 83036; 83735; 83970; 84100; 85025

== ENCOUNTER → 2022-03-20 03:06 | Outpatient (CLI) | payer MEDICARE, OTHER, SELFPAY ==
--- NOTE | 2022-03-20 06:45 | DI.US_ITS ---
Exam(s) US CAROTID EXAM: US CAROTID CLINICAL HISTORY: f/u stenosis,i65.29. TECHNIQUE: Ultrasound carotids performed using grayscale, color-flow, and spectral Doppler imaging. COMPARISON: US US CAROTID from 04/04/2021 FINDINGS: CAROTID ARTERIES: Both common carotid arteries are patent. There is plaque evident at the carotid bulbs bilaterally. Although no elevated velocities at the level the bulbs there is mildly elevated velocity in the proxi mal right ICA with peak systolic velocity of 132 cm/sec, indicating moderate stenosis 50-69 percent. Amount of stenosis on the opposite side is significantly less. Velocities are normal in the upper i nternal carotid arteries in the upper neck. VERTEBRAL ARTERIES: Antegrade flow evident both vertebral arteries.. Measurements: R Bulb: 51.1cm/s PS / 6.6cm/s ED R CCA: 60.7cm/s PS / 19.7cm/s ED R ECA: 55.9cm/s PS / 14.2cm/s ED R ICA Prox: 132cm/s PS / 31.8cm/s ED R ICA Mid: 62.3cm/s PS / 14.4cm/s ED R ICA Distal: 64.5cm/s PS /23.1cm/s ED R Vert: 51.6cm/s PS / 15.2cm/s ED R SVR: 2.2 R DVR: 1.6 L Bulb: 36.1cm/s PS / 7.6cm/s ED L CCA: PS / 15.4cm/s ED L ECA: 30.2cm/s PS / 7.5cm/s ED L ICA Prox: 40cm/s PS / 15.4cm/s ED L ICA Mid: 64.6cm/s PS / 22.4cm/s ED L ICA Distal: 46.2cm/s PS / 0cm/s ED L Vert: 59.5cm/s PS / 0cm/s ED L SVR: 1.1 L DVR: 1.5 IMPRESSION: 1. Elevated velocities on the right side indicate moderate stenosis at the level of the proximal righ t ICA (50-69 percent) 2. Velocities on the left side indicates stenosis less than 50 percent. 3. Antegrade flow is demonstrated in both vertebral arteries. Criteria for Carotid Stenosis: Normal: ICA PSV <125 cm/s no plaque or intimal thickening is visible. <50% stenosis: ICA PSV <125 cm/s and plaque or intimal thickening is visible. 50-69% stenosis: ICA PSV is 125-250 cm/s and plaque is visible. >70% stenosis to near occlusion: ICA PSV >250 cm/s with visible plaque and luminal narrowing. DATA REPOSITORY:
== END ==
PROVIDERS: PCP Family Medicine; Visit Provider Family Medicine
DX: I65.23 Occlusion and stenosis of bilateral carotid arteries (principal)
CPT/HCPCS: 93880

== ENCOUNTER → 2022-04-03 02:56 | Outpatient (CLI) | payer MEDICARE, OTHER, SELFPAY ==
--- NOTE | 2022-04-03 | DI.DEXA_ITS ---
Exam(s) XR DEXA BONE DENSITY W/WO JEMIMA EXAM: XR DEXA BONE DENSITY W/WO JEMIMA CLINICAL HISTORY: HX BREAST CANCER Z85.3 HIGH RISK MED USE Z79.899 SYMPTOMATIC POSTPROCEDURAL TECHNIQUE: COMPARISON: CR XR DEXA BONE DENSITY W/WO JEMIMA from 02/12/2019 FINDINGS: Lateral Spine Image: Unremarkable. No compression deformities identified. Left hip: Total T-Score: 0.5. This compares to 0.3 on the prior examination. Total Z-Score: 2.3 T- and Z-scores: Within normal limits. Lumbar Spine: Total T-Score: 2.5. This compares to 2.0 on the prior examination. Total Z-Score: 4.9 T- and Z-scores: Within normal limits. IMPRESSION: No evidence of osteoporosis.
== END ==
PROVIDERS: PCP Family Medicine; Visit Provider Nurse Practitioner Adult Health
DX: E89.41 Symptomatic postprocedural ovarian failure (principal); Z13.820 Encounter for screening for osteoporosis; Z85.3 Personal history of malignant neoplasm of breast; Z79.899 Other long term (current) drug therapy
CPT/HCPCS: 77080

== ENCOUNTER 2022-07-02 02:54 | Outpatient (CLI) | payer MEDICARE, OTHER, SELFPAY ==
[2022-07-02 12:57] LABS: Hemoglobin A1C 7.5 % (<5.7)
[2022-07-02 13:22] LABS: ALT 37 U/L (14-59); AST 30 U/L (15-37); Albumin 3.9 g/dL (3.4-5.0); Alkaline Phosphatase 55 U/L (46-116); Anion Gap 7.7 mmol/L (3-11); BUN 21 mg/dL (7-18); Bilirubin, Total 0.5 mg/dL (0.2-1.0); CO2 31.3 mmol/L (21.0-32.0); CREATININE 1.4 mg/dL (0.55-1.02); Calcium 10.8 mg/dL (8.5-10.1); Chloride 100 mmol/L (98-107); Estimated GFR 39.23 (mL/min/1.73m2); Glucose 158 mg/dL (74-106); Magnesium 1.6 mg/dL (1.8-2.4); Potassium 4.5 mmol/L (3.5-5.1); Sodium 139 mmol/L (136-145); Total Protein 7.6 g/dL (6.4-8.2); Vitamin B12 1239 pg/mL (193-986)
== END 2022-07-02 02:55 | disposition home or self-care (01) ==
LOC: LOS 02:54
PROVIDERS: PCP Family Medicine; Visit Provider Family Medicine
DX: N18.32 Chronic kidney disease, stage 3b (principal); E11.22 Type 2 diabetes mellitus with diabetic chronic kidney disease; Z79.4 Long term (current) use of insulin; Z79.899 Other long term (current) drug therapy
CPT/HCPCS: 36415; 80053; 82607; 83036; 83735

== ENCOUNTER 2022-10-03 02:44 | Outpatient (CLI) | payer MEDICARE, OTHER, SELFPAY ==
--- NOTE | 2022-10-03 10:36 | DI.US_ITS ---
APPROVED REPORT EXAM: Comprehensive 2D, Doppler, and color-flow Echocardiogram Patient Location: Out-Patient [employer]ator: Sabrina Gardner RDCS (AE) Indications: Aortic stenosis Other Information Study Quality: Adequate Conclusion Normal left ventricular wall thickness and chamber size. Ejection fraction is 60%. Wall motion is n ormal Normal right ventricular size and systolic function Both atria are normal in size Aortic valve is sclerotic and trileaflet with moderate to severe aortic stenosis. Peak gradient is 5 0, mean 31 mmHg. Calculated aortic valve area 0.86 cm??. There is trace to mild aortic regurgitatio n Estimated right ventricular systolic pressure is 19 mmHg Wall motion Left Ventricle The left ventricle is normal size. The left ventricular systolic function is normal. The left ventric ular ejection fraction is within the normal range. There is normal left ventricular wall thickness. T here is normal LV segmental wall motion. There is no ventricular septal defect visualized. LVEF is 60 %. Right Ventricle The right ventricle is normal size. The right ventricular systolic function is normal. The RVSP is 19 .3 mmHg. Atria The left atrium size is normal. The right atrium size is normal. The interatrial septum is intact wit h no evidence for an atrial septal defect. Aortic Valve Aortic valve is calcified. Aortic valve is trileaflet. Moderate to severe aortic stenosis. Highest me an aortic valve gradient is 30.6_mmHg. Peak aortic valve gradient is 50.1mmHg. Calculated JENNY by the continuity equation is .86cm2. Trace to mild aortic regurgitation. Mitral Valve Mild mitral annular calcification. No evidence of mitral valve stenosis. Trace mitral regurgitation. Tricuspid Valve The tricuspid valve is normal in structure. There is no tricuspid valve stenosis. Trace to mild tricu spid regurgitation. Pulmonic Valve The pulmonary valve is normal in structure. There is no pulmonic valvular stenosis. There is no pulmo spenser valvular regurgitation. Great Vessels The aortic root is normal in size. The ascending aorta is normal in size. Aortic arch is normal in ca liber. IVC is normal in size and collapses >50% with inspiration. Pericardium There is no pericardial effusion. 2D Dimensions IVSD d PLAX 0.96 cm F: 0.6-1.0 LV Vol A2C d MOD 63.0 mL LVPW d PLAX 0.94 cm F: 0.6 - 1.0 LV Vol A4C d MOD 60.6 mL LVID d PLAX 4.65 cm F: 3.8 - 5.2 LA vol/ BSA A2C s A-L 25.2 mL/m2 LVDs 3.15 cm F: 2.2 - 3.5 LA vol/ BSA A4C s A-L 17.8 mL/m2 Ao Root d 2.78 cm F: 2.7 - 3.3 LA Vol/ BSA Biplane s A-L 21.5 mL/m2 RA Area A4C 10.43 cm2 LA Area A4C s MOD 13.81 cm2 RA Vol/ BSA A4C s A-L 12.4 mL/m2 LA Area A2C s MOD 16.60 cm2 Ao Asc Diam d 3.10 cm F: 2.3 - 3.1 LV EF A4C MOD 61.6 % LV EF Teichholz 59.0 % LV EF A2C MOD 61.8 % LVEF (Randle's) 59.68 % F: 54 - 74 LV EF Biplane MOD 59.7 % LV Volume 49.18 mL F: 46 - 106 SV 37.60 mL LV Volume Index 27.62 mL/m2 F: 29 - 61 SV Index 21.10 mL/m2 LV Vol Biplane MOD 63.0 mL FS 31.15 % LV Diastology MV E' medial 0.047 (>0.07 m/s) E/A Ratio 0.5 LV E/e MED 13.55 (<14) MV E Vmax 0.64 (0.4-1.3 m/s) MV E' lateral 0.040 (>0.1 m/s) MV A Vmax 1.20 (0.4-1.3 m/s) LV E/e LAT 15.90 (<14) MV E/A Ratio 0.53 MV E/E' medial 13.59 MV E/E' lateral 15.91 Aortic Valve LVOT Area 3.09 cm2 AoV Area Vmax 0.86 cm2 LVOT Vmax 0.98 m/s AoV Area/ BSA (Vmax) 0.48 cm2/m2 LVOT Peak Grad 3.9 mmHg AR DT 1519 msec LVOT Diam s 1.95 cm AR PHT 441 msec AoV Vmax 3.54 m/s Velocity Ratio 0.28 AoV Mean Bashir. 2.65 m/s AoV Peak Grad 50.1 mmHg AoV Mean Grad 30.6 mmHg AoV VTI 0.877 m Mitral Valve MV DT 239 (160-240 msec) MV PHT 69 msec MV Area PHT 3.17 cm2 Pulmonary Valve RVOT Peak Gr. 1.47 mmHg RVOT Mean Gr. 0.75 mmHg RVOT VTI 0.135 m RVOT Vmax 0.61 m/s Tricuspid Valve TR Peak Grad 16.2 mmHg TR Vmax 2.02 m/s RA Pressure 3.00 mmHg RVSP (TR) 19.3 mmHg
== END 2022-10-03 03:04 ==
PROVIDERS: PCP Family Medicine; Visit Provider Internal Medicine Cardiovascular Disease
DX: I35.0 Nonrheumatic aortic (valve) stenosis (principal)
CPT/HCPCS: 93306

== ENCOUNTER → 2022-11-26 10:55 | Outpatient (BNVA) | payer MEDICARE, OTHER, SELFPAY | PROVIDERS: PCP Family Medicine; Referring Provider Family Medicine; Visit Provider Internal Medicine Cardiovascular Disease | DX: I35.0 Nonrheumatic aortic (valve) stenosis (principal); I12.9 Hypertensive chronic kidney disease with stage 1 through stage 4 chronic kidney disease, or unspecified chronic kidney disease; I65.21 Occlusion and stenosis of right carotid artery; E11.22 Type 2 diabetes mellitus with diabetic chronic kidney disease; N18.9 Chronic kidney disease, unspecified | CPT/HCPCS: 99214 ==

== ENCOUNTER 2022-11-27 04:21 | Outpatient (CLI) | payer MEDICARE, OTHER, SELFPAY ==
[2022-11-27 12:27] LABS: Abs Immature Grans 0.02 10^3/uL (0.0-0.06); Absolute Basophil Count 0.04 10^3/uL (0.0-0.2); Absolute Eosinophil Count 0.21 10^3/uL (0.0-0.7); Absolute Lymphocyte Count 2.71 10^3/uL (1.2-3.4); Absolute Monocyte Count 0.77 10^3/uL (0.1-0.8); Absolute Neutrophil Count 4.18 10^3/uL (1.2-6.7); Basophils % 0.5; Eosinophils % 2.6; HGB 12.8 g/dL (11.2-15.7); Immature Grans % 0.3; Lymphocytes % 34.2; MCH 30.9 pg (27.0-33.0); MCHC 32.8 % (32.0-36.0); MCV 94 fL (80-95); MPV 8.9 fL (8.0-11.0); Monocytes % 9.7; Neutrophils % 52.7; Platelet Count 235 10^3/uL (130-400); RBC 4.14 10^6/uL (3.93-5.22); RDW 12.5 % (11.7-14.6); RDW-SD 43.1 fL; WBC 7.93 10^3/uL (4.4-10.8)
[2022-11-27 12:36] LABS: PTT Activated 26.3 sec (21.5-31.9); Prothrombin Time 9.9 sec (9.3-11.0)
[2022-11-27 13:11] LABS: ALT 28 U/L (14-59); AST 23 U/L (15-37); Albumin 3.8 g/dL (3.4-5.0); Alkaline Phosphatase 56 U/L (46-116); Anion Gap 10.2 mmol/L (3-11); BUN 27 mg/dL (7-18); Bilirubin, Total 0.5 mg/dL (0.2-1.0); CO2 27.8 mmol/L (21.0-32.0); CREATININE 1.6 mg/dL (0.55-1.02); Calcium 9.9 mg/dL (8.5-10.1); Chloride 102 mmol/L (98-107); Estimated GFR 33.42 (mL/min/1.73m2); Glucose 128 mg/dL (74-106); Potassium 4.4 mmol/L (3.5-5.1); Sodium 140 mmol/L (136-145); Total Protein 7.5 g/dL (6.4-8.2)
== END 2022-11-27 04:22 | disposition home or self-care (01) ==
PROVIDERS: PCP Family Medicine; Visit Provider Internal Medicine Cardiovascular Disease
DX: Z01.812 Encounter for preprocedural laboratory examination (principal); I35.0 Nonrheumatic aortic (valve) stenosis; I65.29 Occlusion and stenosis of unspecified carotid artery; E78.5 Hyperlipidemia, unspecified
CPT/HCPCS: 36415; 80051; 80053; 82947; 84520; 82565; 83036; 85025; 85610; 85730

== ENCOUNTER 2023-05-03 10:43 | Outpatient (RCR) | payer MEDICARE, OTHER, SELFPAY | END 2023-05-05 23:59 | disposition home or self-care (01) | LOC: CR 10:43 | PROVIDERS: PCP Family Medicine; Referring Provider Physician Assistant Surgical; Visit Provider Family Medicine | DX: I35.0 Nonrheumatic aortic (valve) stenosis (principal); Z95.4 Presence of other heart-valve replacement; Z51.89 Encounter for other specified aftercare | CPT/HCPCS: S9472 ==

== ENCOUNTER 2023-05-09 13:28 | Outpatient (CLI) | payer MEDICARE, OTHER, SELFPAY ==
--- NOTE | 2023-05-09 13:30 | RT.EKG_ITS ---
APPROVED REPORT Exam: Resting ECG Reason for Exam: follow up Patient Location: O HR:75 bpm ECG Measurements Heart Rate 75 AXIS AL 157 P 33 QRSd 144 QRS -21 QT 430 T 117 QTc 481 Conclusion Sinus rhythm...normal P axis, V-rate 50- 99 Left bundle branch block...QRSd>120, broad/notched R I have reviewed and interpreted ECG and agree with software generated interpretation.
== END 2023-05-09 13:29 | disposition home or self-care (01) ==
LOC: DI.CARD 13:31
PROVIDERS: PCP Family Medicine; Referring Provider Family Medicine; Visit Provider Internal Medicine Interventional Cardiology
DX: I44.7 Left bundle-branch block, unspecified (principal)
CPT/HCPCS: 93010

== ENCOUNTER → 2023-05-09 13:28 | Outpatient (BNVA) | payer MEDICARE, OTHER, SELFPAY | PROVIDERS: PCP Family Medicine; Referring Provider Family Medicine; Visit Provider Internal Medicine Interventional Cardiology | DX: I35.0 Nonrheumatic aortic (valve) stenosis (principal); I10 Essential (primary) hypertension; Z95.2 Presence of prosthetic heart valve | CPT/HCPCS: 93005; 99213 ==

== ENCOUNTER 2023-06-05 09:16 | Outpatient (RCR) | payer MEDICARE, OTHER, SELFPAY | END 2023-06-05 23:59 | disposition home or self-care (01) | LOC: CR 09:16 | PROVIDERS: PCP Family Medicine; Visit Provider Internal Medicine Interventional Cardiology | DX: I35.0 Nonrheumatic aortic (valve) stenosis (principal); Z51.89 Encounter for other specified aftercare | CPT/HCPCS: S9472 ==

== ENCOUNTER 2023-07-01 09:00 | Outpatient (RCR) | payer MEDICARE, OTHER, SELFPAY | END 2023-07-04 23:59 | disposition home or self-care (01) | LOC: CR 09:00 | PROVIDERS: PCP Family Medicine; Visit Provider Internal Medicine Interventional Cardiology | DX: I35.0 Nonrheumatic aortic (valve) stenosis (principal); Z51.89 Encounter for other specified aftercare | CPT/HCPCS: S9472 ==

== ENCOUNTER 2023-07-17 04:12 | Outpatient (CLI) | payer MEDICARE, OTHER, SELFPAY ==
[2023-07-17 11:34] LABS: Lab Add On Test DONE
[2023-07-17 12:24] LABS: Abs Immature Grans 0.03 10^3/uL (0.0-0.06); Absolute Basophil Count 0.04 10^3/uL (0.0-0.2); Absolute Eosinophil Count 0.19 10^3/uL (0.0-0.7); Absolute Lymphocyte Count 2.29 10^3/uL (1.2-3.4); Absolute Monocyte Count 0.73 10^3/uL (0.1-0.8); Absolute Neutrophil Count 4.54 10^3/uL (1.2-6.7); Basophils % 0.5; Eosinophils % 2.4; HCT 38.7 % (36.0-46.0); HGB 12.5 g/dL (11.2-15.7); Immature Grans % 0.4; Lymphocytes % 29.3; MCH 29.6 pg (27.0-33.0); MCHC 32.3 % (32.0-36.0); MCV 92 fL (80-95); MPV 8.7 fL (8.0-11.0); Monocytes % 9.3; Neutrophils % 58.1; Platelet Count 235 10^3/uL (130-400); RBC 4.23 10^6/uL (3.93-5.22); RDW 13.2 % (11.7-14.6); RDW-SD 43.5 fL; WBC 7.82 10^3/uL (4.4-10.8)
[2023-07-17 12:51] LABS: Calculated LDL 68 mg/dL (<100); Cholesterol 145 mg/dL (<200); HDL Cholesterol 52 mg/dL (40-60); Triglyceride 127 mg/dL (<150)
[2023-07-17 12:54] LABS: COMMENT (LAB VIEW ONLY) 208.43 mg/dL; Microalb ug/mg Crea 6.5 ug/mg Cr
== END 2023-07-17 04:13 | disposition home or self-care (01) ==
LOC: LOS 04:12
PROVIDERS: PCP Family Medicine; Visit Provider Family Medicine
DX: N18.32 Chronic kidney disease, stage 3b (principal); E11.21 Type 2 diabetes mellitus with diabetic nephropathy; Z79.4 Long term (current) use of insulin
CPT/HCPCS: 36415; 80061; 82043; 82570; 83735; 85025; S9472

== ENCOUNTER 2023-08-02 09:08 | Outpatient (RCR) | payer MEDICARE, OTHER, SELFPAY | END 2023-08-04 23:59 | disposition home or self-care (01) | LOC: CR 09:08 | PROVIDERS: PCP Family Medicine; Visit Provider Internal Medicine Cardiovascular Disease | DX: I35.0 Nonrheumatic aortic (valve) stenosis (principal); Z51.89 Encounter for other specified aftercare | CPT/HCPCS: S9472 ==

== ENCOUNTER 2023-08-07 09:00 | Outpatient (RCR) | payer MEDICARE, OTHER, SELFPAY | END 2023-09-03 23:59 | disposition home or self-care (01) | LOC: CR 09:00 | PROVIDERS: PCP Family Medicine; Visit Provider Internal Medicine Cardiovascular Disease | DX: I35.2 Nonrheumatic aortic (valve) stenosis with insufficiency (principal); Z51.89 Encounter for other specified aftercare | CPT/HCPCS: S9472 ==

== ENCOUNTER → 2023-08-09 13:33 | Outpatient (BNVA) | payer MEDICARE, OTHER, SELFPAY | PROVIDERS: PCP Family Medicine; Visit Provider Internal Medicine Cardiovascular Disease | DX: Z95.2 Presence of prosthetic heart valve (principal); I10 Essential (primary) hypertension; I44.7 Left bundle-branch block, unspecified | CPT/HCPCS: 99213 ==

== ENCOUNTER 2023-11-04 04:01 | Outpatient (CLI) | payer MEDICARE, OTHER, SELFPAY ==
[2023-11-04 10:49] LABS: Hemoglobin A1C 7.1 % (<5.7)
== END 2023-11-04 04:02 | disposition home or self-care (01) ==
LOC: LBO 04:02
PROVIDERS: PCP Family Medicine; Visit Provider Family Medicine
DX: N18.32 Chronic kidney disease, stage 3b (principal); Z79.4 Long term (current) use of insulin; E11.22 Type 2 diabetes mellitus with diabetic chronic kidney disease
CPT/HCPCS: 36415; 83036

== ENCOUNTER 2024-03-17 07:52 | Outpatient (CLI) | payer MEDICARE, OTHER, SELFPAY | END 2024-03-17 07:53 | disposition home or self-care (01) | LOC: DI.CARD 07:52 | PROVIDERS: PCP Family Medicine; Visit Provider Internal Medicine Cardiovascular Disease | DX: I44.7 Left bundle-branch block, unspecified (principal) | CPT/HCPCS: 93010 ==

== ENCOUNTER → 2024-03-17 13:24 | Outpatient (BNVA) | payer MEDICARE, OTHER, SELFPAY | PROVIDERS: PCP Family Medicine; Visit Provider Internal Medicine Cardiovascular Disease | DX: Z95.2 Presence of prosthetic heart valve (principal); I44.7 Left bundle-branch block, unspecified | CPT/HCPCS: 99213 ==

== ENCOUNTER 2024-07-10 00:46 | Outpatient (CLI) | payer MEDICARE, OTHER, SELFPAY ==
[2024-07-10 09:55] LABS: Hemoglobin A1C 7.2 % (<5.7)
[2024-07-10 10:29] LABS: Microalb ug/mg Crea 5.4 ug/mg Cr
[2024-07-10 10:32] LABS: ALT 22 U/L (14-59); AST 25 U/L (15-37); Albumin 3.6 g/dL (3.4-5.0); Alkaline Phosphatase 71 U/L (46-116); Anion Gap 6.3 mmol/L (3-11); BUN 21 mg/dL (7-18); Bilirubin, Total 0.4 mg/dL (0.2-1.0); CO2 30.7 mmol/L (21.0-32.0); CREATININE 1.5 mg/dL (0.55-1.02); Calcium 9.8 mg/dL (8.5-10.1); Calculated LDL 64 mg/dL (<100); Chloride 104 mmol/L (98-107); Cholesterol 148 mg/dL (<200); Estimated GFR 35.67 (mL/min/1.73m2); Glucose 147 mg/dL (74-106); HDL Cholesterol 56 mg/dL (>or=50); Potassium 4.3 mmol/L (3.5-5.1); Sodium 141 mmol/L (136-145); Total Protein 7.7 g/dL (6.4-8.2); Triglyceride 144 mg/dL (<150)
== END 2024-07-10 00:47 | disposition home or self-care (01) ==
PROVIDERS: PCP Family Medicine; Visit Provider Family Medicine
DX: E11.9 Type 2 diabetes mellitus without complications (principal); E11.21 Type 2 diabetes mellitus with diabetic nephropathy; Z79.4 Long term (current) use of insulin
CPT/HCPCS: 36415; 80053; 80061; 82043; 82570; 83036

== ENCOUNTER 2024-12-01 04:43 | Outpatient (CLI) | payer MEDICARE, OTHER, SELFPAY ==
[2024-12-01 13:24] LABS: Hemoglobin A1C 6.9 % (<5.7)
[2024-12-01 13:54] LABS: Anion Gap 6.3 mmol/L (3-11); BUN 21 mg/dL (7-18); CO2 31.7 mmol/L (21.0-32.0); Calcium 9.9 mg/dL (8.5-10.1); Chloride 99 mmol/L (98-107); Estimated GFR 42.35 (mL/min/1.73m2); Glucose 126 mg/dL (74-106); Potassium 4.6 mmol/L (3.5-5.1); Sodium 137 mmol/L (136-145); Uric Acid 7.0 mg/dL (2.6-6.0)
== END 2024-12-01 04:44 | disposition home or self-care (01) ==
LOC: LBO 04:43
PROVIDERS: PCP Family Medicine; Visit Provider Family Medicine
DX: M1A.9XX0 Chronic gout, unspecified, without tophus (tophi) (principal); E11.9 Type 2 diabetes mellitus without complications; E11.21 Type 2 diabetes mellitus with diabetic nephropathy; I10 Essential (primary) hypertension; Z79.4 Long term (current) use of insulin
CPT/HCPCS: 36415; 80048; 83036; 84550

== ENCOUNTER 2025-02-16 03:22 | Outpatient (CLI) | payer MEDICARE, OTHER, SELFPAY ==
[2025-02-16 10:17] LABS: Uric Acid 6.3 mg/dL (2.6-6.0)
== END 2025-02-16 03:23 | disposition home or self-care (01) ==
LOC: LBO 03:23
PROVIDERS: PCP Family Medicine; Visit Provider Family Medicine
DX: E79.0 Hyperuricemia without signs of inflammatory arthritis and tophaceous disease (principal)
CPT/HCPCS: 36415; 84550

== ENCOUNTER 2025-03-16 13:29 | Outpatient (CLI) | payer MEDICARE, OTHER, SELFPAY ==
--- NOTE | 2025-03-16 13:30 | RT.EKG_ITS ---
APPROVED REPORT Exam: Resting ECG Reason for Exam: LBBB Patient Location: O HR:78 bpm ECG Measurements Heart Rate 78 AXIS TN 185 P 55 QRSd 156 QRS -24 QT 413 T 142 QTc 471 Conclusion Sinus rhythm...normal P axis, V-rate 50- 99 Probable left atrial enlargement...P >50mS, <-0.10mV V1 Left bundle branch block...QRSd>120, broad/notched R
== END 2025-03-16 13:30 | disposition home or self-care (01) ==
LOC: DI.CARD 13:40
PROVIDERS: PCP Family Medicine; Visit Provider Internal Medicine Cardiovascular Disease
DX: I44.7 Left bundle-branch block, unspecified (principal); I51.7 Cardiomegaly
CPT/HCPCS: 93010

== ENCOUNTER → 2025-03-16 13:29 | Outpatient (BNVA) | payer MEDICARE, OTHER, SELFPAY | PROVIDERS: PCP Family Medicine; Referring Provider Family Medicine; Visit Provider Internal Medicine Cardiovascular Disease | DX: I34.2 Nonrheumatic mitral (valve) stenosis (principal); I44.7 Left bundle-branch block, unspecified; Z95.3 Presence of xenogenic heart valve | CPT/HCPCS: 99213; 93005 ==